=== PATIENT | male | born 1990 | race Caucasian/White ===

== ENCOUNTER 2017-10-11 13:43 | Emergency (ER) | payer BC ==
[~2017-10-11] VITALS: Ht 187.9 cm; Wt 72.6 kg
[2017-10-11] MEDS ORDERED: ANUSOL-HC25 MG R (14:09)
== END 2017-10-11 14:17 | disposition home or self-care (01) ==
LOC: ED 13:43
DX: K64.4 Residual hemorrhoidal skin tags (principal)

== ENCOUNTER 2021-12-02 00:32 | Emergency (ER) | payer SELFPAY ==
[~2021-12-02 00:32] MED LIST: ANUSOL-HC25 MG R
[2021-12-02] MEDS ORDERED: AMOXICILLIN500 M2 PO (02:50)
== END 2021-12-02 02:59 | disposition home or self-care (01) ==
LOC: ED 00:32
DX: T16.1XXA Foreign body in right ear, initial encounter (principal); X58.XXXA Exposure to other specified factors, initial encounter; Y93.89 Activity, other specified; Y92.89 Other specified places as the place of occurrence of the external cause; Y99.8 Other external cause status